=== PATIENT | female | born 1950 | race Two or more races ===

== ENCOUNTER 2025-04-02 13:28 | Emergency (ER) | payer MEDICARE, MEDICAID ==
[~2025-04-02] VITALS: Ht 165.1 cm; Wt 84.8 kg
[~2025-04-02 13:28] MED LIST: AMLODIPINE; ATEN-60; HYDR-1421; PAXIL
--- NOTE | 2025-04-02 15:14 | ED.PDOC ---
Musculoskeletal HPI Comments This is a 74 year old female presenting to the ED with chief complaint of right knee pain. Patient reports that she has been experiencing right knee pain with associated swelling for the past month after falling and injuring her right knee. Patient denies any numbness, weakness, tingling, chest pain, SOB, or headache. Chief Complaint: Lower Extremity Time Seen by MD: 15:10 Primary Care Provider: NONE Reviewed Notes: Nurses Notes, Medications, Allergies Allergies: Coded Allergies: Tramadol (Verified Allergy, Severe, FACIAL PAIN, 05/21/11) Ibuprofen (Verified Allergy, Unknown, 04/02/25) Home Meds Active Scripts Hydrocodone-Acetaminophen (Hydrocodone Bitartrate/AC 5-325 mg) 1 Tab Tab, 1 TAB PO BID for 10 Days, #20 TAB Prov:URBANO ANDRADE MD 04/02/25 Reported Medications [Paxil] No Conflict Check 03/06/11 [Amlodipine] No Conflict Check 06/01/10 Hydrocodone-Acetaminophen (Vicodin) 1 Tab Tab 02/16/10 Atenolol (Atenolol) 25 Mg Tab 02/16/10 Information Source: Patient Mode of Arrival: Ambulatory Location: Right Extremity Location: Knee Timing: Months Prehospital treatment: None Severity: Moderate Able to Move Extremity: Yes Bear Weight: Fully Pain: Moderate Mechanism: Spontaneous Circumstances: Fall Onset of Symptoms: After Trauma Symptoms: Swelling, Pain DVT Risk Factors: NONE Last Tetanus: Unknown Associated signs and symptoms: Knee pain Past Medical History PAST MEDICAL HISTORY: Depression, HTN Surgical History: Denies all surgeries AUDIT REVIEWER History: No Pertinent AUDIT REVIEWER History Family History Family History: Reviewed,noncontributory to illness, Unknown Social History Smoker: Non-Smoker Alcohol: Denies ETOH Use Drugs: Denies Drug Use Lives In: Home Constitutional: denies: chills, diaphoresis, fatigue, fever, malaise, sweats, weakness, others EENTM: denies: blurred vision, double vision, ear bleeding, ear discharge, ear drainage, ear pain, ear ringing, eye pain, eye redness, hearing loss, mouth pain, mouth swelling, nasal discharge, nose bleeding, nose congestion, nose pain, photophobia, tearing, throat pain, throat swelling, voice changes, others Respiratory: denies: cough, hemoptysis, orthopnea, SOB at rest, shortness of breath, SOB with excertion, stridor, wheezing, others Cardiovascular: denies: chest pain, dizzy spells, diaphoresis, Dyspnea on exertion, edema, irregular heart beat, left arm pain, lightheadedness, palpitations, PND, syncope, others Gastrointestinal: denies: abdomen distended, abdominal pain, blood streaked bowels, constipated, diarrhea, dysphagia, difficulty swallowing, hematemesis, melena, nausea, poor appetite, poor fluid intake, rectal bleeding, rectal pain, vomiting, others Genitourinary: denies: abnormal vagina bleeding, burning, dyspareunia, dysuria, flank pain, frequency, hematuria, incontinence, pain, , vagina discharge, urgency, others Neurological: denies: dizziness, fainting, headache, left sided numbness, left sided weakness, numbness, paresthesia, pre-existing deficit, right sided numbness, right sided weakness, seizure, speech problems, tingling, tremors, weakness, others Musculoskeletal: reports: others (Rt knee pain); denies: back pain, gout, joint pain, joint swelling, muscle pain, muscle stiffness, neck pain Integumetry: denies: bruises, change in color, change in hair/nails, dryness, laceration, lesions, lumps, rash, wounds, others Allergic/Immunocompromised: denies: Difficulty Healing, Frequent Infections, Hives, Itching, others Hematologic/Lymphatic: denies: anemia, blood clots, easy bleeding, easy bruising, swollen glands, others Endocrine: denies: excessive hunger, excessive sweating, excessive thirst, excessive urination, flushing, intolerance to cold, intolerance to heat, unexplained weight gain, unexplained weight loss, others Psychiatric: denies: anxiety, bipolar disorder, depression, hopeless, panic disorder, schizophrenia, sleepless, suicidal, others All Other Systems: Reviewed and Negative Physical Exam General Appearance: No Apparent Distress, Normal HEENT: Normal ENT Inspection, Pharynx Normal, TMs Normal Neck: Full Range of Motion, Non-Tender, Normal, Normal Inspection Respiratory: Chest Non-Tender, Lungs Clear, No Accessory Muscle Use, No Respiratory Distress, Normal Breath Sounds Cardiovascular: No Edema, No JVD, No Murmur, No Gallop, Normal Peripheral Pulses, Regular Rate/Rhythm Breast Exam: Deferred Gastrointestinal: No Organomegaly, Non Tender, No Pulsatile Mass, Normal Bowel Sounds, Soft Genitalia: Deferred Pelvic: Deferred Rectal: Deferred Extremities: No calf tenderness, Normal capillary refill, Normal inspection, Normal range of motion, Non-tender, No pedal edema Musculoskeletal : Apperance: Normal Neurologic: Alert, 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 Was a procedure done?: No Differential Diagnosis EXT Differential Diagnosis: Cellulitis, Fracture, Sprain, Gout, Contusion, Strain, Arthritis, Bursitis X-Ray, Labs, Meds, VS Vital Signs Date Time Temp Pulse Resp B/P (MAP) Pulse Ox O2 Delivery O2 Flow Rate FiO2 04/02/25 15:47 98.3 56 18 174/62 (99) 96 98.3 04/02/25 15:47 56 18 96 Room Air* 0 21 04/02/25 13:29 98.1 62 18 162/84 97 98.1 Current Medications Medications (Trade) Dose Ordered Sig/Magdalene Route Start Time Stop Time Status Last Admin Acetaminophen/ Hydrocodone Bitart ([place] 5/325MG Tab) 1 tab ONCE ONCE PO 04/02/25 16:45 04/02/25 16:46 DC 04/02/25 16:46 X-Ray, Labs, Meds, VS Comment Fell on her knee and come to the [facility] because of swelling and pain she did need about two weeks ago The knee is swollen with a fusion The CT is normal for fracture dislocation or fracture patella with positive for effusion Patient will have an Adam wrap and will be discharged home she will continue to use the cane Time of 1ST Reevaluation: 16:09 Reevaluation 1ST: Unchanged Time of 2ND Reevaluation: 17:01 Reevaluation 2ND: Unchanged Consultation: PCP Patient Education/Counseling: Diagnosis, Treatment, Prognosis, Need For Follow Up Family Education/Counseling: Diagnosis, Treatment, Prognosis, Need For Follow Up, No Family Present Departure 1 Departure Time of Disposition: 17:02 Impression: Primary Impression: Prepatellar effusion of right knee Additional Impression: Fall at home Disposition: 01 HOME / SELF CARE / HOMELESS Condition: Fair Additional Instructions: Local heat apply an Adam wrap and follow up with your PCP e-Prescriptions Hydrocodone-Acetaminophen (Hydrocodone Bitartrate/AC 5-325 mg) 1 Tab Tab 1 TAB PO BID for 10 Days, #20 TAB Prov: URBANO ANDRADE MD 04/02/25 Critical Care Note Critical Care Time?: No Stability Stability form required: No Heart Score Heart Score: Heart Score Response (Comments) Value History N/A 0 EKG N/A 0 Age N/A 0 Risk Factors N/A 0 Troponin N/A 0 Total 0 I personally scribed for URBANO ANDRADE MD ([email or web address]) on 04/02/25 at 15:14. Tanja ctronically submitted by Tapan Keyes ([email or web address]). URBANO ANDRADE MD Apr 02, 2025 15:14
[2025-04-02 15:47] VITALS: BP 174/62; PULSE 56; RESP 18; TEMP 98.3; O2SAT 96
[2025-04-02] MEDS ORDERED: KETOROLAC TROMETH 60MG/2ML VIAL IM ONE (16:30)
[2025-04-02] MEDS: HYDROcodone-ACET 5/325MG TAB PO ONE (16:46)
--- NOTE | 2025-04-02 16:59 | DVH ---
CT CT R KNEE WO CONTRAST INDICATION: Fell on her knee 2-3 weeks ago EXAM DATE: 04/02/2025 03:30 PM COMPARISON: None RADIATION DOSE: CTDIvol: 24.95 mGy, DLP: 793.44 mGy*cm PROCEDURE: Helical CT images were obtained of the right knee without intravenous contrast. Sagittal a nd coronal reconstructions are provided. ADDITIONAL IMAGES: None FINDINGS: BONES: No fracture. Normal anatomic alignment. JOINT SPACES: Degenerative. No joint effusion. SOFT TISSUES: Mild anterior knee skin thickening and fat stranding. VESSELS: unremarkable. IMPRESSION: No acute fracture or dislocation seen. Moderate degenerative joint disease.
[2025-04-02] MEDS ORDERED: HYDR-4902 PO (17:05)
== END 2025-04-02 17:26 | disposition home or self-care (01) ==
LOC: ER 13:28
DX: M25.461 Effusion, right knee (principal); Z88.6 Allergy status to analgesic agent; Z88.5 Allergy status to narcotic agent; W19.XXXA Unspecified fall, initial encounter; Y93.89 Activity, other specified; Y92.009 Unspecified place in unspecified non-institutional (private) residence as the place of occurrence of the external cause; Y99.8 Other external cause status
CPT/HCPCS: 73700; J1885